=== PATIENT | male | born 1950 | race Caucasian/White ===

== ENCOUNTER 2016-10-07 15:50 | Outpatient (CLI) | payer BC | END 2016-10-07 15:51 | disposition home or self-care (01) | DX: R09.89 Other specified symptoms and signs involving the circulatory and respiratory systems (principal) ==

== ENCOUNTER 2021-02-22 14:53 | Outpatient (CLI) | payer BC ==
--- NOTE | 2021-02-22 15:15 | XRAY Report ---
PROCEDURE: Lumbar Spine 2 View INDICATIONS: LOWER BACK PAIN TECHNIQUE: 2 views of the lumbar spine were acquired. COMPARISON: None. FINDINGS: Bones: 5 [id number] vertebrae are present. There is normal bony alignment. No vertebral body compression fractures. No suspicious bony lesions. Soft tissues: Overlying bowel gas pattern is normal. No suspicious soft tissue calcifications. IMPRESSION: Mild to moderate degenerative disc disease is seen along the lumbosacral spine, most pro minent at L4-5 and L5-S1. Facet osteoarthritis becomes progressively more prominent from L3 through S 1 and is moderately severe at L4-5 and L5-S1. Significant spinal and foraminal stenosis at these 2 lo wer levels likely is present impinging on nerve roots. Appreciable lower back pain would be expected. No acute trauma found. No prior compression fracture seen. Reviewed by: Omid Galaviz MD on 02/22/2021 2:14 PM [facility] Approved by: Omid Galaviz MD on 02/22/2021 2:14 PM [facility] Station ID: [id number]
== END 2021-02-22 14:54 | disposition home or self-care (01) ==
LOC: DI.S 14:53
PROVIDERS: ATTEND Physician Assistant Medical
DX: M47.816 Spondylosis without myelopathy or radiculopathy, lumbar region (principal); M47.817 Spondylosis without myelopathy or radiculopathy, lumbosacral region; M51.36 Other intervertebral disc degeneration, lumbar region; M48.061 Spinal stenosis, lumbar region without neurogenic claudication; M51.37 Other intervertebral disc degeneration, lumbosacral region; M48.07 Spinal stenosis, lumbosacral region

== ENCOUNTER 2024-03-06 09:05 | Day surgery (SDC) | payer BC ==
[2024-03-06] MEDS: LACTATED RINGERS 1,000 ML IV ONE ×2 (09:18→11:35)
[2024-03-06] MEDS ORDERED: PROPOFOL 200 MG/20 ML VIAL IVP ONE (10:08)
[2024-03-06] MEDS ORDERED: fentaNYL 100 MCG/2 ML VIAL ONE (10:09)
[2024-03-06] MEDS ORDERED: MIDAZOLAM 2 MG/2 ML VIAL ONE (10:09)
--- NOTE | 2024-03-06 10:44 | ANESTHESIA ---
Pre-Anesthesia VS, & Labs - Diagnosis elevated psa - Procedure trus prostate biopsy Vital Signs: Temp Pulse Resp BP Pulse Ox O2 Flow Rate 36.3 C L 57 L 19 127/69 100 03/06/24 09:19 03/06/24 09:19 03/06/24 09:19 03/06/24 09:19 03/06/24 09:19 Height: 6 ft 1 in Weight (kg): 84.1 kg Body Mass Index: 24.4 BMI Classification: Normal - NPO >8 hours Home Medications and Allergies Home Medications: Ambulatory Orders Aspirin [Aspirin EC] 81 mg PO DAILY 02/25/24 Cyclobenzaprine [Flexeril] 10 mg PO TID PRN 02/25/24 Metoprolol Succinate [Toprol Xl] 25 mg PO DAILY 02/25/24 Multivitamin 1 each PO DAILY 02/25/24 Simvastatin [Zocor] 20 mg PO DAILY 02/25/24 Tadalafil [Cialis] 10 - 20 mg PO PRN PRN 02/25/24 amLODIPine [Norvasc] 5 mg PO DAILY 02/25/24 Aspirin [Aspirin EC] 81 mg PO DAILY 02/25/24 Cyclobenzaprine [Flexeril] 10 mg PO TID PRN 02/25/24 Metoprolol Succinate [Toprol Xl] 25 mg PO DAILY 02/25/24 Multivitamin 1 each PO DAILY 02/25/24 Simvastatin [Zocor] 20 mg PO DAILY 02/25/24 Tadalafil [Cialis] 10 - 20 mg PO PRN PRN 02/25/24 amLODIPine [Norvasc] 5 mg PO DAILY 02/25/24 Allergies/Adverse Reactions: Allergies Allergy/AdvReac Type Severity Reaction Status Date / Time No Known Drug Allergies Allergy Verified 02/25/24 14:56 Anes History & Medical History - Anesthetic History Anesthesia Complications: reports: No previous complications - Medical History Cardiovascular: reports: Hypertension, High cholesterol Pulmonary: reports: None Gastrointestinal: reports: GERD Urinary: reports: None Neuro: reports: None Musculoskeletal: reports: Chronic back pain, Other Endocrine/Autoimmune: reports: None Skin: reports: None Smoking Status: Never smoker Psychosocial: reports: No issues indicated History of Cancer?: No - Surgical History General: reports: Colonoscopy Cardiothoracic: reports: Other Orthopedic: reports: ACL reconstruction Exam General: Alert, Oriented x3, Cooperative, No acute distress Dental: WNL Mouth Openin Fingerbreadth Neck Mobility: Normal Mallampati classification: I Thyromental Distance: 4-6 cm Mental/Cognitive Status: Alert/Oriented X3, Normal for patient Plan Anesthesia Type: Total IV Consent for Procedure(s) Verified and Reviewed: Yes Code Status: Attempt Resuscitation ASA classification: 2-Mild systemic disease Is this case an emergency?: No
[2024-03-06] MEDS ORDERED: lidocaine 1% 20 ML MDV ONE (10:53)
[2024-03-06] MEDS: LIDOCAINE 1% 50 ML MDV SUBQ ONE (11:10)
[2024-03-06] MEDS ORDERED: HYDROcod/ACETAM 5/325 MG TABLET PO PRN (11:26)
[2024-03-06] MEDS ORDERED: ONDANSETRON 4 MG/2 ML VIAL IVP PRN (11:26)
--- NOTE | 2024-03-06 11:31 | Discharge Plan ---
Discharge Plan Problem Reviewed?: Yes Disposition: Home, Self Care Diet: Regular Activity Restrictions: No Restrictions Shower Restrictions: No Driving Restrictions: No Instruction Topics: Biopsy Ultrasound Transrectal Additional Instructions or Follow Up instructions: You have an appoint with Dr. Nichole on March 16 at 11:30 AM. Please arrive 15 minutes early No Smoking: If you smoke, Please STOP! Call for help.
--- NOTE | 2024-03-06 11:34 | OPERATIVE REPORT ---
Operative Report - General Procedure Date: 03/06/24 Planned Procedure: Transrectal ultrasound guided prostate biopsy Pre-Op Diagnosis: elevated psa Procedure Performed: Transrectal ultrasound guided prostate biopsy Post Op Diagnosis: elevated psa - Procedure Note Primary Surgeon: Dionisio Anesthesia Provider: SLY Boyer Anesthesia Technique: MAC Pathology: prostate biopsy samples Indications: PIRADS 4 lesion in right mid/base TZ PIRADS 4 lesion in left pz Complications: none - Other Other Information/Narrative: After informed consent was obtained the patient was brought to the OR and laid in the supine position. The patient was then anesthetized per anesthesia protocols and placed in the left lower cubitus position with left side down. A timeout was performed reconfirming the patient, procedure and laterality. A transrectal ultrasound-guided probe was placed per rectum and his prostate was visualized. 5 cc 1% lidocaine was placed at the lateral aspect of the prostate bilaterally. The prostate volume was measured at 19cc Using 18-gauge biopsy needle we obtained samples of the prostate from the right and left side, the lateral and medial aspects of the base, mid and apex. We collected 2 extra samples for the right mid portion, specifically targetting the TZ PIRADS lesion, and one extra sample of the left mid portion again targetting the left lesion, for a total of 15 samples. The probe was slowly removed and no significant bleeding was identified. The patient tolerated procedure well and was brought to the PACU without further incident. He will follow-up in a few weeks time for pathology discussion
[2024-03-06 11:46] VITALS: BP 102/60; O2SAT 98
--- NOTE | 2024-03-06 16:13 | ANESTHESIA POST OP EVALUATION ---
Anesthesia Post Eval - Post Anesthesia Eval Vitals: Last Vital Signs Temp 36.3 C L 03/06/24 11:27 Pulse 55 L 03/06/24 11:30 Resp 16 03/06/24 11:30 BP 102/60 03/06/24 11:30 Pulse Ox 98 03/06/24 11:30 O2 Flow Rate CV Function Including HR & BP: Stable Pain Control: Satisfactory Nausea & Vomiting: Negative Mental Status: Baseline Respiratory Status: Airway Patent Hydration Status: Satisfactory Anesthesia Complications: None
== END 2024-03-06 09:06 | disposition home or self-care (01) ==
LOC: SDS 09:05
PROVIDERS: ATTEND Urology
PROC: 0VB03ZX Excision of Prostate, Percutaneous Approach, Diagnostic (ICD-10-PCS; principal; 2024-03-06 10:15)
DX: C61 Malignant neoplasm of prostate (principal); I10 Essential (primary) hypertension
CPT/HCPCS: 55700; J7120